=== PATIENT | male | born 1995 | race Two or more races ===

== ENCOUNTER 2022-09-24 13:31 | Emergency (ER) | payer MEDICAID, OTHER ==
[~2022-09-24] VITALS: Ht 175.3 cm; Wt 61.7 kg
[2022-09-24 13:45] VITALS: BP 129/80
== END 2022-09-24 16:04 | disposition left against medical advice (07) ==
LOC: ER 13:31
DX: R51.9 Headache, unspecified (principal); M79.642 Pain in left hand; Z53.21 Procedure and treatment not carried out due to patient leaving prior to being seen by health care provider; Y08.89XA Assault by other specified means, initial encounter; Y93.89 Activity, other specified; Y92.89 Other specified places as the place of occurrence of the external cause; Y99.8 Other external cause status
CPT/HCPCS: 70486; 73130